=== PATIENT | female | born 1990 | race African-American/Black ===

== ENCOUNTER 2021-11-09 19:16 | Emergency (ER) | payer SELFPAY ==
[2021-11-09] MEDS ORDERED: diphenhydrAMINE 25 MG CAP ONE (20:13)
[2021-11-09] MEDS ORDERED: Ibuprofen 800 MG TAB ONE (20:13)
[2021-11-09] MEDS ORDERED: Metoclopramide HCl 10 MG TAB ONE (20:13)
== END 2021-11-09 20:20 | disposition home or self-care (01) ==
LOC: BURERS 19:16
DX: G43.909 Migraine, unspecified, not intractable, without status migrainosus (principal); F17.210 Nicotine dependence, cigarettes, uncomplicated
CPT/HCPCS: 99283

== ENCOUNTER 2022-12-23 21:14 | Emergency (ER) | payer SELFPAY ==
[2022-12-23] MEDS ORDERED: Acetaminophen 500 MG TAB ONE (21:38)
[2022-12-23 21:49] LABS: #Basophils 0.1 thou/uL (0.0-0.2); #Lymphocytes 0.8 thou/uL (1.20-3.40); #Monocytes 0.3 thou/uL (0.11-0.59); #Neutrophils 10.5 thou/uL (1.40-6.50); %Basophils 0.6 % (0.0-1.0); %Eosinophils 0.1 % (0.0-10.0); %Lymphocytes 7.2 % (21.0-51.0); %Monocytes 2.9 % (0.0-10.0); %Neutrophils 89.3 % (42.0-75.0); Hemoglobin 16.7 g/dL (12.0-16.0); Mean Corpuscular HGB CONC 34.8 g/dL (32.0-36.0); Mean Corpuscular Hemoglobin 33.5 pg (27.0-31.0); Mean Corpuscular Volume 96.3 fl (78.0-98.0); Mean Platelet Volume 6.8 fL (7.4-10.4); Platelet Count 258 10x3/uL (130-400); RBC Distribution Width 10.7 % (11.5-14.5); Red Blood Cell (RBC) Count 4.98 mill/uL (4.20-5.40); White Blood Cell (WBC) Count 11.8 10x3/uL (4.8-10.8)
[2022-12-23 21:58] LABS: ALT (SGPT) 20 U/L (8-55); AST (SGOT) 30 U/L (5-34); Albumin 4.4 g/dL (3.5-5.0); Alkaline Phosphatase 69 U/L (40-110); Anion Gap 20 mmol/L (10-20); BUN (Urea Nitrogen) 9 mg/dL (7.0-18.7); Bilirubin, Total 1.5 mg/dL (0.2-1.2); Calc. Creatinine Clearance 0 mL/min (70-130); Calcium 9.1 mg/dL (7.8-10.44); Carbon Dioxide 22 mmol/L (22-29); Chloride 97 mmol/L (98-107); Estimated GFR 63; Globulin 2.9 g/dL (2.4-3.5); Glucose 122 mg/dL (70-105); Magnesium 1.2 mg/dL (1.6-2.6); Potassium 3.8 mmol/L (3.5-5.1); Protein, Total 7.3 g/dL (6.0-8.3); Sodium 135 mmol/L (136-145)
[2022-12-23] MEDS ORDERED: Sodium Chloride 0.9% 0 ML ONE (22:01)
[2022-12-23] MEDS ORDERED: Cefepime 2 GM VIAL ONE (22:01)
[2022-12-23 22:09] LABS: Bilirubin Negative (Negative); Blood, Urine Negative (Negative); Clarity Cloudy (Clear); Glucose, Urine (Dipstick) Negative (Negative); Ketone, Urine Negative (Negative); Leukocyte Negative (Negative); Nitrite Positive (Negative); Protein, Urine (Dipstick) 30 mg/dL (Neg-Trace)
[2022-12-23] MEDS ORDERED: Vancomycin 1 GM VIAL ONE (22:12)
[2022-12-23 22:16] LABS: Bacteria/HPF 3+ HPF (None Seen); CAUTI Indications for Culture Fever or rigors; Pregnancy Test - Urine (BHCG) Negative (Negative); RBC/HPF None Seen HPF (0-3); Transitional Epithelial 0-3 HPF (None Seen); WBC/HPF 0-3 HPF (0-3)
[2022-12-23 22:17] LABS: Pregu Control Background? CLEAR/WHITE (CLR/WHITE); Pregu Control Bar Appear? YES (CONTROL BAR); Urine Culture Reflex No No
[2022-12-23] MEDS ORDERED: Magnesium Oxide 400 MG TAB ONE (22:32)
[2022-12-23 22:50] LABS: SARS-CoV-2 NAA Rapid Test Not Detected (NotDetected)
== END 2022-12-23 23:25 | disposition short-term general hospital (02) ==
LOC: BURERS 21:14
DX: A41.9 Sepsis, unspecified organism (principal); R65.21 Severe sepsis with septic shock; J18.9 Pneumonia, unspecified organism; Z20.822 Contact with and (suspected) exposure to COVID-19; F17.210 Nicotine dependence, cigarettes, uncomplicated
CPT/HCPCS: 36415; 71045; 80053; 81001; 81025; 83605; 83735; 84484; 85025; 87040; 87077; 87086; 93005; 96365; 96375; J0692; J1956; J3370; J3490